=== PATIENT | female | born 1995 | race Hispanic/Latino ===

== ENCOUNTER 2024-11-13 14:02 | Emergency (ER) | payer OTHER ==
[~2024-11-13] VITALS: Ht 157.5 cm; Wt 68.4 kg
[2024-11-13 16:12] LABS: BASO # 0.1 10^3/uL (0.0-0.2); EOS # 0.2 10^3/uL (0.0-0.5); EOS % 3.3 % (0.0-3.0); HEMATOCRIT 42.5 % (36.0-47.0); HEMOGLOBIN 14.1 g/dl (12.0-15.5); LYMPH # 1.7 10^3/uL (1.5-5.0); LYMPH % 22.6 % (24.0-44.0); MEAN CORPUSCULAR HEMOGLOBIN 29.6 pg (27.0-33.0); MEAN CORPUSCULAR HGB CONC 33.2 g/dl (32.0-36.5); MEAN CORPUSCULAR VOLUME 89.1 fl (80.0-96.0); MONO # 0.8 10^3/uL (0.0-0.8); MONO % 11.1 % (2.0-8.0); NEUTROPHILS # 4.5 10^3/uL (1.5-8.5); NEUTROPHILS % 61.7 % (36.0-66.0); PLATELET COUNT, AUTOMATED 382 10^3/uL (150-450); RED BLOOD COUNT 4.77 10^6/uL (4.00-5.40); WHITE BLOOD COUNT 7.3 10^3/uL (4.0-10.0)
[2024-11-13 16:12] LABS: KETONE, URINE AUTO RFX NEGATIVE (NEGATIVE); LEUKOCYTE ESTERASE UR AUTO RFX NEGATIVE (NEGATIVE); NITRITE, URINE AUTO RFX NEGATIVE (NEGATIVE); RBC, URINE AUTO RFX 0 /HPF (0-3); SQUAM EPITHELIAL CELL UR AURFX 0 /HPF (0-6); WBC, URINE AUTO RFX 1 /HPF (0-3)
[2024-11-13 16:47] LABS: LIPASE 39 U/L (12-53)
[2024-11-13 16:49] LABS: ALBUMIN 3.8 G/DL (3.2-5.2); ALKALINE PHOSPHATASE 63 U/L (35-104); ALT/SGPT 20 U/L (7.0-40); AST/SGOT 14 U/L (<34); BILIRUBIN,DIRECT < 0.1 MG/DL (<0.4); BILIRUBIN,TOTAL 0.3 MG/DL (0.3-1.2); BLOOD UREA NITROGEN 12 MG/DL (9-23); CALCIUM LEVEL 9.3 MG/DL (8.5-10.1); CARBON DIOXIDE LEVEL 26 MMOL/L (20-31); CHLORIDE LEVEL 106 MMOL/L (98-107); CREATININE FOR GFR 0.79 MG/DL (0.55-1.30); GLOMERULAR FILTRATION RATE > 60.0 (>60); GLUCOSE, FASTING 96 MG/DL (60-100); POTASSIUM SERUM 4.5 MMOL/L (3.5-5.1); SODIUM LEVEL 140 MMOL/L (136-145); TOTAL PROTEIN 7.4 G/DL (5.7-8.2)
[2024-11-13] MEDS ORDERED: ISOVUE-370 76% 100ML VIAL As Ordered ONE (19:54)
[2024-11-13 19:57] LABS: HCG, SERUM QUALITATIVE NEGATIVE (NEGATIVE)
[2024-11-13] MEDS: NS (Normal Saline) 0.9% 1,000 ML IV ONE (20:00)
[2024-11-13] MEDS: ONDANSETRON 4MG 2ML VIAL IV ONE (20:00)
[2024-11-13] MEDS: ACETAMINOPHEN *IV* 1,000 MG in IV 1 EA IV ONE (20:00)
[2024-11-13] MEDS: KETOROLAC 30 MG/ML 1ML VIAL IV ONE (20:57)
[2024-11-13] MEDS ORDERED: DICY-61 PO (21:26)
[2024-11-13 21:30] VITALS: BP 118/70; TEMP 98; O2SAT 98
[2024-11-13] MEDS: DICYCLOMINE 10 MG CAP PO ONE (21:40)
== END 2024-11-13 21:54 | disposition home or self-care (01) ==
LOC: M ED 14:02
DX: A09 Infectious gastroenteritis and colitis, unspecified (principal); F17.290 Nicotine dependence, other tobacco product, uncomplicated; Z79.2 Long term (current) use of antibiotics
CPT/HCPCS: 74177; 80048; 80076; 81001; 83690; 84703; 85025; 96361; 96365; 96375; 99284; J0131; J1885; J2405; Q9967